=== PATIENT | female | born 1950 | race Caucasian/White ===

== ENCOUNTER 2021-11-13 14:22 | Emergency (ER) | payer OTHER ==
[~2021-11-13] VITALS: Ht 162.6 cm; Wt 72.6 kg
[~2021-11-13 14:22] MED LIST: GLUCOSAMINE HC500 MG PO; MEDROLDOSEPACK PO; NAPROSYN500 MG PO; NORCO 5-325 TA1 EACH PO
[2021-11-13 15:11] LABS: HEMATOCRIT 24.4 % (37.0-47.0); HEMOGLOBIN 7.4 gm/dL (12.0-15.0); MCH 19.6 pg (26.0-34.0); MCHC 30.2 g/dL (28.0-37.0); MCV 64.8 fL (80.0-100.0); PLATELET COUNT 687 thou/uL (150-400); RBC 3.76 mil/uL (4.20-5.00); WBC 7.9 thou/uL (4.0-11.0)
[2021-11-13 15:36] LABS: CALCIUM 8.9 mg/dL (8.5-10.1); CREATININE 1.1 mg/dL (0.6-1.0); POTASSIUM 3.6 mmol/L (3.5-5.1)
[2021-11-13 15:44] LABS: ABSOLUTE NEUTROPHILS 5.2 thou/uL (1.4-8.2); HYPOCHROMASIA 2+
[2021-11-13 15:45] LABS: MICROCYTES 2+; TOTAL BILIRUBIN 0.2 mg/dL (0.2-1.0); TOTAL PROTEIN 7.2 g/dL (6.4-8.2)
[2021-11-13 15:46] LABS: ANISOCYTOSIS 2+
[2021-11-13 17:13] VITALS: BP 174/69
--- NOTE | 2021-11-14 08:07 | EKG ---
[address] [address] ELECTROCARDIOGRAM REPORT Name: CHILANGOJUDITH [facility] [id number] Admission: 11/13/21 Attend Phys: Discharge: 11/13/21 Date of : 54 Report #: [id number] 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
== END 2021-11-13 17:15 | disposition home or self-care (01) ==
LOC: ER 14:22
PROVIDERS: Emergency Medicine
DX: D64.9 Anemia, unspecified (principal); Z20.822 Contact with and (suspected) exposure to COVID-19; R42 Dizziness and giddiness; J10.1 Influenza due to other identified influenza virus with other respiratory manifestations; I10 Essential (primary) hypertension; E11.9 Type 2 diabetes mellitus without complications; Z79.899 Other long term (current) drug therapy